=== PATIENT | female | born 1995 | race Caucasian/White ===

== ENCOUNTER 2022-07-04 15:16 | Emergency (ER) | payer OTHER, MEDICAID ==
[~2022-07-04] VITALS: Ht 170.2 cm; Wt 66.2 kg
[2022-07-04 15:33] VITALS: BP_SYST 125
--- NOTE | 2022-07-04 15:33 | NUR ---
Patient triaged and placed in waiting room. VSS and patient appears in no acute distress at this time. Accompanied by SELF, awaiting available bed, and MD notified of need for MSE.
--- NOTE | 2022-07-04 16:20 | NUR ---
ER DR. RAMIREZ EXAMINING PT IN TRIAGE
[2022-07-04] MEDS ORDERED: IBUPROFEN 800 MG TABLET PO ONE (16:30)
[2022-07-04] MEDS ORDERED: IBUP-1971 PO (17:19)
[2022-07-04 17:36] VITALS: BP_SYST 121
--- NOTE | 2022-07-04 17:36 | NUR ---
Patient given written and verbal discharge instructions and verbalizes understanding. ER MD discussed with patient the results and treatment provided. Patient in stable condition. ID arm band removed. Rx of IBUPROFEN given. Patient educated on pain management and to follow up with PMD. Pain Scale 0/10. Opportunity for questions provided and answered. Medication side effect fact sheet provided.
== END 2022-07-04 17:36 | disposition home or self-care (01) ==
LOC: SED 15:16
DX: S13.4XXA Sprain of ligaments of cervical spine, initial encounter (principal); Z79.899 Other long term (current) drug therapy; V89.2XXA Person injured in unspecified motor-vehicle accident, traffic, initial encounter; Y93.89 Activity, other specified; Y92.89 Other specified places as the place of occurrence of the external cause; Y99.8 Other external cause status
CPT/HCPCS: 72040-TC; 99283